=== PATIENT | female | born 1950 | race Caucasian/White ===

== ENCOUNTER → 2016-10-31 | Outpatient (CLI) | payer OTHER, MEDICARE | END | disposition home or self-care (01) | LOC: CFH 10:48 | PROVIDERS: ATTEND Family Medicine | DX: Z12.31 Encounter for screening mammogram for malignant neoplasm of breast (principal); M81.0 Age-related osteoporosis without current pathological fracture; M85.88 Other specified disorders of bone density and structure, other site; N95.9 Unspecified menopausal and perimenopausal disorder; M19.042 Primary osteoarthritis, left hand; M19.041 Primary osteoarthritis, right hand; M25.842 Other specified joint disorders, left hand; M19.072 Primary osteoarthritis, left ankle and foot; M19.071 Primary osteoarthritis, right ankle and foot; M77.31 Calcaneal spur, right foot; M77.32 Calcaneal spur, left foot; M25.775 Osteophyte, left foot; M25.774 Osteophyte, right foot | CPT/HCPCS: 73130; 73630; 77080; G0202 ==

== ENCOUNTER → 2018-08-28 | Outpatient (CLI) | payer MEDICARE | END | disposition home or self-care (01) | LOC: CFH 11:18 | PROVIDERS: ATTEND Family Medicine | DX: M25.721 Osteophyte, right elbow (principal) ==

== ENCOUNTER → 2018-09-21 | Outpatient (CLI) | payer MEDICARE ==
[2018-09-21 11:32] LABS: ALBUMIN 4.3 g/dL (3.4-5.0); ANION GAP 3 mmol/L (5-15); CALCIUM 9.4 mg/dL (8.5-10.1); CHLORIDE 110 mmol/L (98-107)
[2018-09-21 11:42] LABS: ALANINE AMINOTRANSFERASE 22 U/L (12-78); ALKALINE PHOSPHATASE 80 U/L (45-117); BILIRUBIN,TOTAL 0.5 mg/dL (0.2-1.0); CHOL/HDL RATIO 2.3; CHOLESTEROL, TOTAL 199 mg/dL (140-239); CREATININE 1.19 mg/dL (0.55-1.02); HDL CHOL % 43 % (28-40); HDL CHOLESTEROL (DIRECT) 85 mg/dL (40-60); LDL CHOLESTEROL,CALCULATED 87 mg/dL (54-169); TRIGLYCERIDES 134 mg/dL (50-200); VLDL CHOLESTEROL 27 mg/dL (0-25)
[2018-09-21 11:55] LABS: BASOPHILS # (AUTO) 0.03 x10^3/uL (0-0.1); BASOPHILS % (AUTO) 1 % (0-1); EOSINOPHILS % (AUTO) 2 % (1-7); LYMPHOCYTES # (AUTO) 1.23 x10^3/uL (1-3.4); LYMPHOCYTES % (AUTO) 21 % (22-44); MD NO; MEAN CORPUSCULAR HEMOGLOBIN 28.2 pg (27.0-34.8); MEAN CORPUSCULAR HGB CONC 33.5 g/dL (32.4-35.8); MEAN PLATELET VOLUME 7.6 fL (7.4-10.4); MONOCYTES % (AUTO) 7 % (2-9); NEUTROPHILS # (AUTO) 4.04 x10^3/uL (1.8-6.8); NEUTROPHILS % (AUTO) 70 % (42-75); PLATELET COUNT 237 x10^3/uL (130-400); RED BLOOD COUNT 5.09 x10^6/uL (3.82-5.3); RED CELL DISTRIBUTION WIDTH 13.4 % (9.6-15.2)
== END | disposition home or self-care (01) ==
LOC: CFH 09:13
PROVIDERS: ATTEND Family Medicine
DX: E78.5 Hyperlipidemia, unspecified (principal); G47.00 Insomnia, unspecified; N18.3 Chronic kidney disease, stage 3 (moderate)
CPT/HCPCS: 36415; 80053; 80061; 84439; 84443; 84480; 85025

== ENCOUNTER → 2018-11-05 | Outpatient (CLI) | payer MEDICARE | END | disposition home or self-care (01) | LOC: CFH 09:15 | PROVIDERS: ATTEND Family Medicine | DX: Z12.31 Encounter for screening mammogram for malignant neoplasm of breast (principal); Z13.820 Encounter for screening for osteoporosis; M85.88 Other specified disorders of bone density and structure, other site; Z78.0 Asymptomatic menopausal state | CPT/HCPCS: 77063; 77067; 77080 ==